=== PATIENT | female | born 1975 | race Two or more races ===

== ENCOUNTER 2019-08-08 16:24 | Inpatient (IN) | payer OTHER ==
[~2019-08-08] VITALS: Ht 152.4 cm; Wt 117.5 kg
[2019-08-13] MEDS ORDERED: LANTUS SOL100 UNIT/1 (10:42)
[2019-08-13] MEDS ORDERED: HUMALOG100 UNIT/1 SUBCUTANEO (10:43)
[2019-08-13] MEDS ORDERED: NORVASC5 MG PO (10:44)
[2019-08-13] MEDS ORDERED: LIPITOR20 MG PO (10:44)
[2019-08-13] MEDS ORDERED: JANUMET XR 50-1 EAC1 PO (10:44)
[2019-08-13] MEDS ORDERED: GABAPENTIN400 MG PO (10:45)
[2019-08-13] MEDS ORDERED: SINGULAIR10 MG PO (10:45)
[2019-08-13] MEDS ORDERED: ALLEGRA ALLERG180 MG PO (10:45)
[2019-08-13] MEDS ORDERED: ZESTRIL40 M1 PO (10:45)
[2019-08-13] MEDS ORDERED: VENTOLIN HFA18 GM IH (10:45)
[2019-08-13] MEDS ORDERED: WELLBUTRIN SR100 MG PO (10:46)
[2019-08-13] MEDS ORDERED: DERMACINRX THE135 GM TOP (10:46)
[2019-08-13] MEDS ORDERED: ABILIFY10 MG PO (10:46)
[2019-08-13] MEDS ORDERED: CLONAZEPAM0.5 MG PO (10:47)
[2019-08-19] MEDS ORDERED: HYOSCYAMINE0.125 M1 SL (10:29)
[2019-08-19] MEDS ORDERED: OXYC1TAB9 PO (10:29)
[2019-08-19] MEDS ORDERED: POLY119PG PO (10:31)
== END 2019-08-19 13:58 | disposition home or self-care (01) | DRG 330 ==
LOC: SURG 08-17 05:39 → O/R 08-17 05:39 → EDBD 08-17 10:00 → SURG 08-17 10:00 → SURH 08-18 18:26 → SURG 08-18 20:02
PROVIDERS: ADMIT Surgery
PROC: 07TC4ZZ Resection of Pelvis Lymphatic, Percutaneous Endoscopic Approach (ICD-10-PCS; 2019-08-17)
PROC: 0DJD8ZZ Inspection of Lower Intestinal Tract, Via Natural or Artificial Opening Endoscopic (ICD-10-PCS; 2019-08-17)
PROC: 5A09357 Assistance with Respiratory Ventilation, Less than 24 Consecutive Hours, Continuous Positive Airway Pressure (ICD-10-PCS; 2019-08-17)
PROC: 0DTN4ZZ Resection of Sigmoid Colon, Percutaneous Endoscopic Approach (ICD-10-PCS; principal; 2019-08-17 12:45)
PROC: 3E0F7GC Introduction of Other Therapeutic Substance into Respiratory Tract, Via Natural or Artificial Opening (ICD-10-PCS; 2019-08-18)
DX: C18.7 Malignant neoplasm of sigmoid colon (principal); K92.1 Melena; J45.41 Moderate persistent asthma with (acute) exacerbation; Z99.11 Dependence on respirator [ventilator] status; R59.0 Localized enlarged lymph nodes; I10 Essential (primary) hypertension; E11.40 Type 2 diabetes mellitus with diabetic neuropathy, unspecified; Z79.4 Long term (current) use of insulin; G47.39 Other sleep apnea

== ENCOUNTER 2019-08-16 05:09 | Day surgery (SDC) | payer OTHER ==
[~2019-08-16 05:09] MED LIST: ABILIFY10 MG PO; ALLEGRA ALLERG180 MG PO; CLONAZEPAM0.5 MG PO; DERMACINRX THE135 GM TOP; GABAPENTIN400 MG PO; HUMALOG100 UNIT/1 SUBCUTANEO; JANUMET XR 50-1 EAC1 PO; LANTUS SOL100 UNIT/1; LIPITOR20 MG PO; NORVASC5 MG PO; SINGULAIR10 MG PO; VENTOLIN HFA18 GM IH; WELLBUTRIN SR100 MG PO; ZESTRIL40 M1 PO
== END 2019-08-16 09:45 | disposition home or self-care (01) ==
LOC: AMB-ENDOS 05:09 → EDBD 08-17 10:00 → AMB-ENDOS 08-17 10:00
DX: C18.7 Malignant neoplasm of sigmoid colon (principal)